=== PATIENT | female | born 1985 | race Caucasian/White ===

== ENCOUNTER 2016-04-17 22:23 | Emergency (ER) | payer OTHER ==
[~2016-04-17] VITALS: Ht 170.2 cm; Wt 55.0 kg
[~2016-04-17 22:23] MED LIST: LISI2.5T55 PO; NUVAMIS PV; PRAV40TA PO; [UNRECOGNIZED DRUG - OTHER]
[2016-04-17 22:25] VITALS: BP 199/114; PULSE 83; RESP 16; TEMP 98.8; O2SAT 97
[2016-04-17] MEDS ORDERED: LORazepam 2 MG/ML VIAL IV PUSH ONE (22:45)
[2016-04-17] MEDS ORDERED: THIAMINE INJ 100 MG in SODIUM CHLORIDE 0.9% INJ 100 ML IV ONE (22:45)
[2016-04-17] MEDS ORDERED: SODIUM CHLORIDE 0.9% FLUSH 5 ML FLUSH IVF PRN (22:45)
[2016-04-17] MEDS ORDERED: SODIUM CHLOR 0.9% 1000 ML INJ 1,000 ML IV SCH (22:45)
--- NOTE | 2016-04-17 22:57 | PD ---
HPI Chief Complaint: GI Complaint Time Seen by Provider: 22:52 Travel History International Travel<30 days: No Contact w/Intl Traveler<30days: No Traveled to known affect area: No History of Present Illness HPI The patient is a 30-year-old female who presents emergency for evaluation of bright red blood in her stools as well as abdominal cramping. Patient states the abdominal cramping started this morning, she then had a bowel movement and noticed bright red blood when she wiped. The bleeding did not continue after the bowel movement. She denies any history of hemorrhoids, straining, constipation. Patient states that she had a similar incident approximately one year ago with the same symptoms. She was advised at that time to not drink any alcohol. She states that a few months ago she started drinking 6-10 beers a day , she has PTSD secondary to service, she is not medicated for this anymore. Patient denies any fever, chills, nausea, vomiting, chest pain, shortness of breath. PFSH Past Medical History Anxiety: Yes Depression: Yes High Cholesterol: Yes Diabetes: No Hypertension: Yes Psychiatric: Yes (PTSD) : 1 Past Surgical History Other Surgery: Yes (hand surgery) Social History Alcohol Use: Yes (6-10 beers daily) Tobacco Use: Yes (QUITTING) Substance Use: No Allergies-Medications (Allergen,Severity, Reaction): Coded Allergies: Penicillin (Verified Allergy, Intermediate, HIVES, 04/17/16) Uncoded Allergies: ADHES (Allergy, Mild, HIVES, 09/26/12) Reported Meds & Prescriptions Reported Meds & Active Scripts Active Active Prescriptions or Reported Medications Unobtainable Review of Systems Except as stated in HPI: all other systems reviewed are Neg General / Constitutional: No: Fever, Chills HENT: No: Headaches Cardiovascular: No: Chest Pain or Discomfort Respiratory: No: Shortness of Breath Gastrointestinal: Positive: Abdominal Pain, Hematochezia, No: Nausea, Vomiting , Diarrhea Genitourinary: No: Dysuria Neurologic: No: Dizziness, Syncope, Focal Abnormalities Psychiatric: Positive: Anxiety, Substance Abuse Physical Exam Narrative GENERAL: Well-developed, well-nourished, alert female. Appears anxious, in no acute distress. SKIN: Warm and dry. HEAD: Atraumatic. Normocephalic. EYES: Pupils equal and round. No scleral icterus. No injection or drainage. ENT: No nasal bleeding or discharge. Mucous membranes pink and moist. NECK: Trachea midline. No JVD. CARDIOVASCULAR: Regular rate and rhythm. No murmur appreciated. RESPIRATORY: No accessory muscle use. Clear to auscultation. Breath sounds equal bilaterally. GASTROINTESTINAL: Abdomen soft, mildly tender to palpation, nondistended. Hepatic and splenic margins not palpable. No rebound, no guarding MUSCULOSKELETAL: No obvious deformities. No clubbing. No cyanosis. No edema. NEUROLOGICAL: Awake and alert. No obvious cranial nerve deficits. Motor grossly within normal limits. Normal speech. PSYCHIATRIC: Anxious mood and affect; insight and judgment normal. Data Data Last Documented VS Vital Signs Date Time Temp Pulse Resp B/P Pulse Ox O2 Delivery O2 Flow Rate FiO2 04/17/16 23:47 63 16 154/88 100 Room Air 04/17/16 22:25 98.8 Orders Complete Blood Count With Diff (04/17/16 22:44) Comprehensive Metabolic Panel (04/17/16 22:44) Lactic Acid (04/17/16 22:44) Prothrombin Time / Inr (Pt) (04/17/16 22:44) Act Partial Throm Time (Ptt) (04/17/16 22:44) Urinalysis - C+S If Indicated (04/17/16 22:44) Ct Abd/Pel W Iv Contrast(Rout) (04/17/16 22:44) Iv Access Insert/Monitor (04/17/16 22:44) Ecg Monitoring (04/17/16 22:44) Oximetry (04/17/16 22:44) Sodium Chloride 0.9% Flush (Ns Flush) (04/17/16 22:45) Ed Urine Pregnancytest Poc (04/17/16 22:44) Type And Screen (04/17/16 22:45) Sodium Chlor 0.9% 1000 Ml Inj (Ns 1000 M (04/17/16 22:45) Thiamine Inj (Thiamine Inj) (04/17/16 22:45) Lorazepam Inj (Ativan Inj) (04/17/16 22:45) Labs Laboratory Tests Test 04/17/16 04/17/16 22:00 22:50 Blood Type B NEGATIVE White Blood Count 7.7 TH/MM3 Red Blood Count 4.06 MIL/MM3 Hemoglobin 13.9 GM/DL Hematocrit 39.5 % Mean Corpuscular Volume 97.5 FL Mean Corpuscular Hemoglobin 34.3 PG Mean Corpuscular Hemoglobin 35.2 % Concent Red Cell Distribution Width 13.3 % Platelet Count 237 TH/MM3 Mean Platelet Volume 7.1 FL Neutrophils (%) (Auto) 68.3 % Lymphocytes (%) (Auto) 21.4 % Monocytes (%) (Auto) 6.9 % Eosinophils (%) (Auto) 2.2 % Basophils (%) (Auto) 1.2 % Neutrophils # (Auto) 5.3 TH/MM3 Lymphocytes # (Auto) 1.7 TH/MM3 Monocytes # (Auto) 0.5 TH/MM3 Eosinophils # (Auto) 0.2 TH/MM3 Basophils # (Auto) 0.1 TH/MM3 CBC Comment DIFF FINAL Differential Comment Prothrombin Time 9.7 SEC Prothromb Time International 0.9 RATIO Ratio Activated Partial 27.4 SEC Thromboplast Time Sodium Level 137 MEQ/L Potassium Level MEQ/L Chloride Level 105 MEQ/L Carbon Dioxide Level 20.7 MEQ/L Anion Gap 11 MEQ/L Blood Urea Nitrogen 5 MG/DL Creatinine 0.64 MG/DL Estimat Glomerular Filtration 108 ML/MIN Rate Random Glucose 80 MG/DL Lactic Acid Level 1.8 mmol/L Calcium Level 8.3 MG/DL Total Bilirubin 0.7 MG/DL Aspartate Amino Transf 31 U/L (AST/SGOT) Alanine Aminotransferase 25 U/L (ALT/SGPT) Alkaline Phosphatase 70 U/L Total Protein 6.8 GM/DL Albumin 3.4 GM/DL MDM Medical Decision Making Medical Screen Exam Complete: Yes Emergency Medical Condition: Yes Interpretation(s) Vital Signs Date Time Temp Pulse Resp B/P Pulse Ox O2 Delivery O2 Flow Rate FiO2 04/17/16 22:25 98.8 83 16 199/114 97 Room Air Differential Diagnosis Hemorrhoids versus GI bleed versus gastritis versus anemia versus DTs versus other Narrative Course Patient is a 30-year-old female who presents emergency for evaluation of bright red blood in her stools and abdominal cramping. Patient's symptoms started this morning. She's had no vomiting or nausea. Patient was hypertensive on arrival, likely secondary to anxiety. Patient has PTSD and stopped her medications. Appears she's been self-medicating with alcohol, she drinks 6-10 beers daily. She had her last drink this afternoon and is likely experiencing DTs. Labs and imaging ordered and pending. Stool was positive for blood on Hemoccult card. Here patient transferred to my attending physician, who will be responsible for patient's disposition. HemaPrompt Point of Care Fecal Specimen Occult Blood: Positive Scripts No Active Prescriptions or Reported Meds Chelle Sandoval Apr 17, 2016 22:57
[2016-04-17 23:16] LABS: AUTOMATED NEUTROPHIL # 5.3 TH/MM3 (1.8-7.7); BASOPHIL # 0.1 TH/MM3 (0-0.2); BASOPHIL % 1.2 % (0.0-2.0); EOSINOPHIL # 0.2 TH/MM3 (0-0.4); EOSINOPHIL % 2.2 % (0.0-4.0); HEMATOCRIT 39.5 % (35.0-46.0); HEMO FLAGS DIFF FINAL; LYMPH % 21.4 % (9.0-44.0); LYMPHOCYTE # 1.7 TH/MM3 (1.0-4.8); MEAN CELL VOLUME 97.5 FL (80.0-100.0); MEAN CORPUSCULAR HEMOGLOBIN 34.3 PG (27.0-34.0); MEAN CORPUSCULAR HGB CONC 35.2 % (32.0-36.0); MONO % 6.9 % (0.0-8.0); NEUT % 68.3 % (16.0-70.0); PLATELET COUNT 237 TH/MM3 (150-450); RED BLOOD COUNT 4.06 MIL/MM3 (4.00-5.30); RED CELL DISTRIBUTION WIDTH 13.3 % (11.6-17.2); WHITE BLOOD COUNT 7.7 TH/MM3 (4.0-11.0)
[2016-04-17 23:30] LABS: APTT (PATIENT) 27.4 SEC (24.3-30.1); INTERNATIONAL NORMALIZED RATIO 0.9 RATIO; PROTHROMBIN TIME - PATIENT 9.7 SEC (9.8-11.6)
[2016-04-17 23:38] LABS: ALKALINE PHOSPHATASE 70 U/L (45-117); TOTAL BILIRUBIN ADULT 0.7 MG/DL (0.2-1.0)
[2016-04-17 23:40] LABS: ALT (GPT) 25 U/L (10-53); ANION GAP 11 MEQ/L (5-15); AST (GOT) 31 U/L (15-37); BICARBONATE 20.7 MEQ/L (21.0-32.0); BLOOD UREA NITROGEN 5 MG/DL (7-18); CHLORIDE 105 MEQ/L (98-107); GLOMERULAR FILTRATION RATE 108 ML/MIN (>89); SODIUM (NA) 137 MEQ/L (136-145)
[2016-04-17 23:47] VITALS: BP 154/88; PULSE 63; RESP 16; O2SAT 100
[2016-04-18 01:58] LABS: BLOOD, URINE NEG (NEG); COMMENT (UR) CULT NOT INDICATED; CULTURE IF INDICATED CULT NOT INDICATED; GLUCOSE,URINE NEG (NEG); KETONE, URINE 10 mg/dL (NEG); MUCUS URINE FEW /lpf (OCC); NITRITE,URINE NEG (NEG); PH, URINE 5.5 (5.0-8.5); URINE COLOR YELLOW (YELLW/STRAW)
[2016-04-18] MEDS ORDERED: IOHEXOL 350 MG/ML 10 ML VIAL (for RAD DIAG) IV ONE (02:04)
--- NOTE | 2016-04-18 02:20 | RADRPT ---
EXAM DATE/TIME: 04/18/2016 02:04 [facility] COMPARISON: No previous studies available for comparison. INDICATIONS : Lower abdominal cramping with bloody stool,today IV CONTRAST: 96 cc Omnipaque 350 (iohexol) IV ORAL CONTRAST: No oral contrast ingested. RADIATION DOSE: 4.70 CTDIvol (mGy) MEDICAL HISTORY : Hypertension. SURGICAL HISTORY : None. ENCOUNTER: Initial ACUITY: 1 day PAIN SCALE: 8/10 LOCATION: Bilateral lower quadrant TECHNIQUE: Volumetric scanning of the abdomen and pelvis was performed. Using automated exposure control and ad justment of the mA and/or kV according to patient size, radiation dose was kept as low as reasonably achievable to obtain optimal diagnostic quality images. FINDINGS: LOWER LUNGS: The visualized lower lungs are clear. LIVER: Homogeneous density without lesion. There is no dilation of the biliary tree. No calcified gallston es. SPLEEN: Normal size without lesion. PANCREAS: Within normal limits. KIDNEYS: Normal in size and shape. There is no mass, stone or hydronephrosis. ADRENAL GLANDS: Within normal limits. VASCULAR: There is no aortic aneurysm. BOWEL/MESENTERY: The stomach, small bowel, and colon demonstrate no acute abnormality. There is no free intraperitone al air or fluid. ABDOMINAL WALL: Within normal limits. RETROPERITONEUM: There is no lymphadenopathy. BLADDER: No wall thickening or mass. REPRODUCTIVE: Within normal limits. INGUINAL: There is no lymphadenopathy or hernia. MUSCULOSKELETAL: Within normal limits for patient age. CONCLUSION: Normal examination. The appendix is unremarkable. Torrey Fields MD on April 18, 2016 at 2:16 Board Certified Radiologist. This report was verified electronically.
--- NOTE | 2016-04-18 04:10 | PD ---
Physical Exam Narrative Patient was seen by my water quality assistant and signed out to me. Data Data Last Documented VS Vital Signs Date Time Temp Pulse Resp B/P Pulse Ox O2 Delivery O2 Flow Rate FiO2 04/17/16 23:47 63 16 154/88 100 Room Air 04/17/16 22:25 98.8 Orders Complete Blood Count With Diff (04/17/16 22:44) Comprehensive Metabolic Panel (04/17/16 22:44) Lactic Acid (04/17/16 22:44) Prothrombin Time / Inr (Pt) (04/17/16 22:44) Act Partial Throm Time (Ptt) (04/17/16 22:44) Urinalysis - C+S If Indicated (04/17/16 22:44) Ct Abd/Pel W Iv Contrast(Rout) (04/17/16 22:44) Iv Access Insert/Monitor (04/17/16 22:44) Ecg Monitoring (04/17/16 22:44) Oximetry (04/17/16 22:44) Sodium Chloride 0.9% Flush (Ns Flush) (04/17/16 22:45) Ed Urine Pregnancytest Poc (04/17/16 22:44) Type And Screen (04/17/16 22:45) Sodium Chlor 0.9% 1000 Ml Inj (Ns 1000 M (04/17/16 22:45) Thiamine Inj (Thiamine Inj) (04/17/16 22:45) Lorazepam Inj (Ativan Inj) (04/17/16 22:45) Labs Laboratory Tests Test 04/17/16 04/17/16 04/18/16 22:00 22:50 01:41 Blood Type B NEGATIVE Antibody Screen NEGATIVE White Blood Count 7.7 TH/MM3 Red Blood Count 4.06 MIL/MM3 Hemoglobin 13.9 GM/DL Hematocrit 39.5 % Mean Corpuscular Volume 97.5 FL Mean Corpuscular Hemoglobin 34.3 PG Mean Corpuscular Hemoglobin 35.2 % Concent Red Cell Distribution Width 13.3 % Platelet Count 237 TH/MM3 Mean Platelet Volume 7.1 FL Neutrophils (%) (Auto) 68.3 % Lymphocytes (%) (Auto) 21.4 % Monocytes (%) (Auto) 6.9 % Eosinophils (%) (Auto) 2.2 % Basophils (%) (Auto) 1.2 % Neutrophils # (Auto) 5.3 TH/MM3 Lymphocytes # (Auto) 1.7 TH/MM3 Monocytes # (Auto) 0.5 TH/MM3 Eosinophils # (Auto) 0.2 TH/MM3 Basophils # (Auto) 0.1 TH/MM3 CBC Comment DIFF FINAL Differential Comment Prothrombin Time 9.7 SEC Prothromb Time International 0.9 RATIO Ratio Activated Partial 27.4 SEC Thromboplast Time Sodium Level 137 MEQ/L Potassium Level MEQ/L Chloride Level 105 MEQ/L Carbon Dioxide Level 20.7 MEQ/L Anion Gap 11 MEQ/L Blood Urea Nitrogen 5 MG/DL Creatinine 0.64 MG/DL Estimat Glomerular Filtration 108 ML/MIN Rate Random Glucose 80 MG/DL Lactic Acid Level 1.8 mmol/L Calcium Level 8.3 MG/DL Total Bilirubin 0.7 MG/DL Aspartate Amino Transf 31 U/L (AST/SGOT) Alanine Aminotransferase 25 U/L (ALT/SGPT) Alkaline Phosphatase 70 U/L Total Protein 6.8 GM/DL Albumin 3.4 GM/DL Urine Color YELLOW Urine Turbidity CLEAR Urine pH 5.5 Urine Specific [place] 1.010 Urine Protein NEG mg/dL Urine Glucose (UA) NEG mg/dL Urine Ketones 10 mg/dL Urine Occult Blood NEG Urine Nitrite NEG Urine Bilirubin NEG Urine Urobilinogen LESS THAN 2.0 MG/DL Urine Leukocyte Esterase NEG Urine WBC 1 /hpf Urine Mucus FEW /lpf Microscopic Urinalysis Comment CULT NOT INDICATED MDM Supervised Visit with JOSE: Yes Interpretation(s) 4:[address] scan abdomen pelvis negative acute pathology. CBC within normal limit. CMP within normal limit. Lactic acid 1.8. UA is negative. Diagnosis Primary Impression: GI bleed Qualified Code: K92.2 - Gastrointestinal hemorrhage, unspecified gastrointestinal hemorrhage type Additional Impressions: Gastritis Qualified Code: K29.21 - Acute alcoholic gastritis with hemorrhage Alcohol withdrawal Qualified Code: F10.230 - Alcohol withdrawal, uncomplicated Patient Instructions: General Instructions Additional Instruction: Librium as directed. Take medications as directed. Ad[facility]. 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 Return if persistent problem or worse. Med/Other Pt SpecificInfo: Prescription(s) given Scripts [Libium] No Conflict Check25 Mg PO Q8HR #21 Prov:Tristen Martines MD 04/18/16 Sucralfate (Carafate)1 Gm Tab1 Gm PO QID #120 TAB On empty stomach Prov:Tristen Martines MD 04/18/16 Pantoprazole (Protonix)20 Mg Tab20 Mg PO DAILY #30 TAB Prov:Tristen Martines MD 04/18/16 Disposition: 01 DISCHARGE HOME Condition: Stable Tristen Martines MD Apr 18, 2016 04:10
[2016-04-18] MEDS ORDERED: CARA1TAB6 PO (04:17)
[2016-04-18] MEDS ORDERED: [UNRECOGNIZED DRUG - OTHER] PO (04:17)
[2016-04-18] MEDS ORDERED: PANT20 PO (04:17)
[2016-04-18] MEDS ORDERED: chlordiazePOXIDE 25 MG CAP PO ONE (04:30)
== END 2016-04-18 04:41 | disposition home or self-care (01) ==
LOC: NEPE 22:23
DX: K29.21 Alcoholic gastritis with bleeding (principal); F10.230 Alcohol dependence with withdrawal, uncomplicated
CPT/HCPCS: 74177; 80053; 81001; 83605; 84703; 85025; 85610; 85730; 86850; 86900; 86901; 96361; 96365; 96375; 99285; J2060; J3411; J7030; Q9967